=== PATIENT | female | born 1975 | race Caucasian/White ===

== ENCOUNTER 2016-08-03 07:10 | Emergency (ER) | payer MEDICAID, OTHER ==
[~2016-08-03] VITALS: Ht 157.5 cm; Wt 58.5 kg
[~2016-08-03 07:10] MED LIST: LEVOTHYROXIN0.175 MG PO
[2016-08-03] MEDS ORDERED: CIPRO500 MG PO (07:23)
[2016-08-03] MEDS ORDERED: DITROPAN5 MG PO (07:23)
[2016-08-03 07:24] VITALS: BP 143/87
--- NOTE | 2016-08-03 07:28 | NUR ---
Patient placed in bed 8.
--- NOTE | 2016-08-03 07:31 | NUR ---
47/F presents to ED for evaluation of headache x2 days accompanied with nausea, denies vomiting. Patient states she was having LLQ abdominal pain x2 days ago but denies abd pain today. Pt states she went to see her PMD for the abdominal pain and states "He gave me medicine for diverticulosis. Two antibiotics." Patient states the abd pain went away. Denies changes in vision. Denies dizziness or lightheadedness. Pt is AOX4, icelandic speaking. Skin warm and dry, normal in color for ethnicity. Pt appears calm and relaxed. Family at bedside. No visible signs of distress noted. VSS.
--- NOTE | 2016-08-03 07:38 | NUR ---
Patient being evaluated by physician at bedside.
[2016-08-03] MEDS ORDERED: NACL 0.9% 1,000 ML IV SCH (07:46)
[2016-08-03] MEDS ORDERED: ONDANSETRON 4 MG/2 ML VIAL IVP ONE (07:50)
[2016-08-03] MEDS ORDERED: MORPHINE SULFATE 4 MG/ML SYR IVP ONE (07:50)
--- NOTE | 2016-08-03 08:09 | NUR ---
Consent for CT signed by patient.
--- NOTE | 2016-08-03 08:55 | NUR ---
Pt taken to CT via w/c.
--- NOTE | 2016-08-03 09:15 | NUR ---
Patient returned from CT scan. MRI TECH re-evaluating patient at bedside.
--- NOTE | 2016-08-03 09:44 | NUR ---
Patient appears to be resting comfortably in bed. Vital Signs within normal limits. Respirations even and unlabored.
--- NOTE | 2016-08-03 10:32 | NUR ---
IV removed, catheter intact and site benign. Applied folded 4x4 gauze and tape to stop bleeding. PT TOLERATED PROCEDURE WELL.
[2016-08-03 10:38] VITALS: BP 105/66
--- NOTE | 2016-08-03 10:38 | NUR ---
Patient discharged with v/s stable. Written and verbal after care instructions given and explained. Patient alert, oriented and verbalized understanding of instructions. Ambulatory with steady gait. All questions addressed prior to discharge. ID band removed. Patient advised to follow up with PMD. Rx of BACTRIM DS 800MG-160MG, FLAGYL 500MG TAB & TYLENOL 325MG given. Patient educated on indication of medication including possible reaction and side effects. Opportunity to ask questions provided and answered.
--- NOTE | 2016-08-03 10:39 | NUR ---
Chart checked and completed. The patient's care was reviewed and supervised by Elizabeth Arcos RN.
--- NOTE | 2016-08-03 10:41 | NUR ---
Garima liriano in EDM - 08/03/16 at 1041 by MEDTRUDY IV removed, catheter intact and site benign. Applied folded 4x4 gauze and tape to stop bleeding. PT TOLERATED PROCEDURE WELL.
== END 2016-08-03 10:38 | disposition home or self-care (01) ==
LOC: MED 07:10
DX: G43.909 Migraine, unspecified, not intractable, without status migrainosus (principal); K57.92 Diverticulitis of intestine, part unspecified, without perforation or abscess without bleeding; E03.9 Hypothyroidism, unspecified; Z88.8 Allergy status to other drugs, medicaments and biological substances
CPT/HCPCS: 36415; 74177; 80053; 81001; 81025; 82150; 83690; 85025; 87086; 96361; 96374; 96375; 99285; J2270; J2405; J7030; Q9967

== ENCOUNTER 2016-08-03 18:00 | Emergency (ER) | payer OTHER ==
[~2016-08-03] VITALS: Ht 157.5 cm; Wt 59.0 kg
[~2016-08-03 18:00] MED LIST changes: +CIPRO500 MG PO; +DITROPAN5 MG PO
[2016-08-03 18:14] VITALS: BP 156/94
--- NOTE | 2016-08-03 18:56 | NUR ---
Patient ambulated to bed 6. RN evaluating patient at bedside.
--- NOTE | 2016-08-03 18:58 | NUR ---
41/F BIB C/O N/V 4 TIMES X TODAY.SKIN IS PINK/WARM/DRY; AAOX4 WITH EVEN AND STEADY GAIT; LUNGS CLEAR BL; HR EVEN AND REGULAR; PT DENIES ANY FEVER, CP, SOB, OR COUGH AT THIS TIME; PATIENT STATES PAIN OF 0/10 AT THIS TIME; VSS; PATIENT POSITIONED FOR COMFORT; HOB ELEVATED; BEDRAILS UP X2; BED DOWN. ER MD MADE AWARE OF PT STATUS.
--- NOTE | 2016-08-03 19:00 | NUR ---
LILI KELLY EVALUATING PT AT BEDSIDE
--- NOTE | 2016-08-03 19:20 | NUR ---
Pt report given to LINDA LEMOS. Transfer of care at this time.
--- NOTE | 2016-08-03 19:35 | NUR ---
REPORT RECEIVED FROM AMINTA PEREZ
--- NOTE | 2016-08-03 20:22 | NUR ---
DR REYES AT BEDSIDE WITH PATIENT
[2016-08-03] MEDS ORDERED: ONDANSETRON 4 MG/2 ML VIAL IVP ONE (20:25)
[2016-08-03] MEDS ORDERED: NACL 0.9% 1,000 ML IV ONE (20:25)
[2016-08-03 21:41] VITALS: BP 123/82
--- NOTE | 2016-08-03 21:43 | NUR ---
Patient discharged with v/s stable. Written and verbal after care instructions given and explained. Patient alert, oriented and verbalized understanding of instructions. with steady gait. All questions addressed prior to discharge. ID band removed. Patient advised to follow up with PMD. Rx of ZOFRAN given. Patient educated on indication of medication including possible reaction and side effects. Opportunity to ask questions provided and answered.
== END 2016-08-03 21:43 | disposition home or self-care (01) ==
LOC: MED 18:06
DX: K57.92 Diverticulitis of intestine, part unspecified, without perforation or abscess without bleeding (principal); R03.0 Elevated blood-pressure reading, without diagnosis of hypertension; E03.9 Hypothyroidism, unspecified; Z88.8 Allergy status to other drugs, medicaments and biological substances
CPT/HCPCS: 81002; 81025; 96361; 96374; 99284; J2405; J7030

== ENCOUNTER 2017-12-09 20:05 | Emergency (ER) | payer OTHER ==
[~2017-12-09] VITALS: Ht 162.6 cm; Wt 63.5 kg
[~2017-12-09 20:05] MED LIST changes: -CIPRO500 MG PO; +DIT5 PO; -DITROPAN5 MG PO; +LEVO0.179 PO; -LEVOTHYROXIN0.175 MG PO
[2017-12-09 20:07] VITALS: BP 145/88
--- NOTE | 2017-12-09 20:10 | NUR ---
Patient ambulated to bed 1 with family. RN evaluating patient at bedside.
--- NOTE | 2017-12-09 20:20 | NUR ---
42/F CAME IN ED WITH FAMILY/FRIEND, C/O NONPRODUCTIVE, DRY COUGH X3 WEEKS. PT REPORTS TAKING PROMETHAZINE WITH CODEINE WITH LITTLE RELIEF. HX HYPOTHYROID. PT DENIES N/V/D; SKIN IS INTACT, PINK/WARM/DRY; AAOX4, PERRL, WITH EVEN AND STEADY GAIT; LUNGS CLEAR BL, BREATHING UNLABORED; HR EVEN AND REGULAR, BL PERIPHERAL PULSES PRESENT; BS ACTIVE X4, NO TENDERNESS TO PALPATION; PT DENIES CHILLS, BODY ACHES, FEVER, OR CP; VSS; PATIENT POSITIONED FOR COMFORT; HOB ELEVATED; BEDRAILS UP X2; BED DOWN.
--- NOTE | 2017-12-09 20:21 | NUR ---
Dr. Haro evaluating patient at bedside.
[2017-12-09 21:25] VITALS: BP 116/74
--- NOTE | 2017-12-09 21:25 | NUR ---
Patient discharged with v/s stable. Written and verbal after care instructions given and explained. Patient alert, oriented and verbalized understanding of instructions. Ambulatory with steady gait. All questions addressed prior to discharge. ID band removed. Patient advised to follow up with PMD. Rx of AZITHROMYCIN 250MG given. Patient educated on indication of medication including possible reaction and side effects. Opportunity to ask questions provided and answered.
== END 2017-12-09 21:25 | disposition home or self-care (01) ==
LOC: MED 20:05
DX: J40 Bronchitis, not specified as acute or chronic (principal); E03.9 Hypothyroidism, unspecified; Z88.8 Allergy status to other drugs, medicaments and biological substances; Z79.899 Other long term (current) drug therapy
CPT/HCPCS: 71045; 99283; Q0092